=== PATIENT | female | born 1985 | race American Indian/Alaskan Native ===

== ENCOUNTER 2016-08-29 13:02 | Emergency (ER) | payer MEDICAID ==
[2016-08-29 13:05] VITALS: BMI 27.4
[2016-08-29 13:06] VITALS: O2SAT 99
--- NOTE | 2016-08-29 13:51 | C.PDOC ---
History Of Present Illness 31 year old female presents to the ED with complaints of lower back pain, claiming it "feels like a UTI." Patient is whom is currently in 5 weeks of gestation. Patient denies nausea, vomiting, and diarrhea. Time Seen by Provider: 08/29/16 13:10 Chief Complaint (Nursing): Back Pain History Per: Patient History/Exam Limitations: no limitations Onset/Duration Of Symptoms: Hrs Current Symptoms Are (Timing): Still Present Quality Of Discomfort: "Pain" (lower back pain ) Previous Symptoms: Back Pain Past Medical History Reviewed: Historical Data, Nursing Documentation, Vital Signs Vital Signs: Last Vital Signs Temp 98.4 F 08/29/16 13:05 Pulse 62 08/29/16 13:05 Resp 18 08/29/16 13:05 BP 117/73 08/29/16 13:05 Pulse Ox 99 08/29/16 13:53 - Medical History PMH: Asthma - [facility] Procedures DELIVERY OF PRODUCTS OF CONCEPTION, EXTERNAL APPROACH (03/29/15) Family History: States: Unknown Family Hx - Social History Hx Tobacco Use: No Hx Alcohol Use: No Hx Substance Use: No - Immunization History Hx Tetanus Toxoid Vaccination: No Hx Influenza Vaccination: No Hx Pneumococcal Vaccination: No Review Of Systems Constitutional: Negative for: Fever, Chills Gastrointestinal: Negative for: Nausea, Vomiting, Diarrhea Musculoskeletal: Positive for: Back Pain (lower back pain ) Physical Exam - Physical Exam Appears: Non-toxic Skin: Warm, Dry Respiratory: No Rales, No Rhonchi, No Stridor Gastrointestinal/Abdominal: No Guarding, No Rebound Back: Normal Inspection Extremity: Normal ROM, No Tenderness Neurological/Psych: Oriented x3 ED Course And Treatment - Laboratory Results Result Diagrams: 08/29/16 13:54 08/29/16 13:54 O2 Sat by Pulse Oximetry: 99 Medical Decision Making Medical Decision Making: pt with mild lower back pain that "feels like uti". no flank pain, costrovertebral ttp. blood work neg, no leukocytosis. us shows gestational sack. suspect eearly preg vs miscarriage. advise outpt f/u and return precautions Disposition - Disposition Referrals: Pato Jo MD [Staff Provider] - Disposition: HOME/ ROUTINE Disposition Time: 14:29 Condition: STABLE Additional Instructions: please see you obgyn. return toe r with worsening symptoms or concerns. please follow up with your obgyn in 48 hours Prescriptions: Cefpodoxime [Vantin] 100 mg PO BID #14 tab Instructions: Threatened Miscarriage (ED), Urinary Tract Infection in (ED) - Clinical Impression Clinical Impression: Threatened - Scribe Statement The provider has reviewed the documentation as recorded by the Scribe Deidra Price All medical record entries made by the Jyotiibshe were at my direction and personally dictated by me. I have reviewed the chart and agree that the record accurately reflects my personal performance of the history, physical exam, medical decision making, and the department course for this patient. I have also personally directed, reviewed, and agree with the discharge instructions and disposition.
[2016-08-29 13:59] LABS: BASO % 0.6 % (0.0-2.0); EOS # 0.1 K/uL (0.0-0.7); EOS % 0.7 % (0.0-4.0); HEMATOCRIT 36.7 % (34.0-47.0); LYMPH # 2.2 K/uL (1.0-4.3); LYMPH % 26.1 % (20.0-40.0); MEAN CELL VOLUME 84.5 fL (81.0-99.0); MEAN CORPUSCULAR HEMOGLOBIN 27.3 pg (27.0-31.0); MEAN CORPUSCULAR HGB CONC 32.3 g/dL (33.0-37.0); MEAN PLATELET VOLUME 6.7 fL (7.2-11.7); MONO # 0.4 K/uL (0.0-0.8); MONO % 5.2 % (0.0-10.0); RED CELL DISTRIBUTION WIDTH 14.2 % (11.5-14.5); WHITE BLOOD COUNT 8.3 K/uL (4.8-10.8)
[2016-08-29 14:07] LABS: CHLORIDE 98 mmol/L (98-107); POTASSIUM 3.6 mmol/L (3.6-5.2); SODIUM 135 mmol/L (132-148)
[2016-08-29 14:09] LABS: ALB/GLOB RATIO 1.2 (1.0-2.1); ALKALINE PHOSPHATASE 56 U/L (38-126); ALT/SGPT 17 U/L (9-52); AST/SGOT 15 U/L (14-36); BILIRUBIN,TOTAL 0.4 mg/dL (0.2-1.3); BLOOD UREA NITROGEN 11 mg/dL (7-17); CARBON DIOXIDE 24 mmol/L (22-30); GFR AFRICAN-AMERICAN > 60; TOTAL PROTEIN 7.3 g/dL (6.3-8.3)
[2016-08-29 14:10] LABS: CALCIUM 8.8 mg/dl (8.6-10.4); GLUCOSE,RANDOM 105 mg/dL (65-105)
[2016-08-29 14:17] LABS: RBC URINE 13 /hpf (0-3); URINE BACTERIA FEW (<OCC); URINE BILIRUBIN NEGATIVE (NEGATIVE); URINE BLOOD 1+ (NEGATIVE); URINE COLOR Yellow (YELLOW); URINE GLUCOSE (UA) NORMAL (Normal); URINE KETONE NEGATIVE (NEGATIVE); URINE LEUKOCYTE ESTERASE 3+ Leu/uL (Negative); URINE PROTEIN NEGATIVE (NEGATIVE); URINE UROBILINOGEN NORMAL mg/dL (0.2-1.0); WBC URINE 25 /hpf (0-5)
--- NOTE | 2016-08-29 14:22 | US ---
PROCEDURE: OB Pelvic Ultrasound HISTORY: abd pain COMPARISON: None available. FINDINGS: UTERUS: Mildly deformed gestational sac identified corresponding to 5 weeks 5 days gestational age. Yolk sac visualized. No pole or cardiac activity identified.. Riana-gestational hemorrhage: None. Uterus measures 10.0 x 5.0 x 6.6 cm. No mass CERVIX: Long and closed. No cervical abnormality seen. RIGHT OVARY: Measures 3.1 x 1.9 x 3.0 cm. No mass. Normal flow. LEFT OVARY: Measures 3.0 x 1.8 x 2.8 cm. No mass. Normal flow. FREE FLUID: Small OTHER FINDINGS: None. IMPRESSION: Intrauterine gestational sac with yolk sac and no identifiable pole or cardiac activity. Gestational sac mildly deformed. Corresponds to 5 weeks 5 days by mean sac diameter. No subchorionic hemorrhage. Follow-up serial beta HCG and transvaginal pelvic ultrasound examination advised.
[2016-08-29 14:58] VITALS: BP 123/69; PULSE 68; RESP 16; TEMP 97.5
== END 2016-08-29 14:59 | disposition home or self-care (01) ==
LOC: C.ER 13:02
DX: O20.0 Threatened abortion (principal); O23.41 Unspecified infection of urinary tract in pregnancy, first trimester; B96.20 Unspecified Escherichia coli [E. coli] as the cause of diseases classified elsewhere; Z3A.01 Less than 8 weeks gestation of pregnancy

== ENCOUNTER 2017-02-25 17:38 | Emergency (ER) | payer MEDICAID ==
[2017-02-25 17:38] VITALS: BMI 27.4
[2017-02-25] MEDS ORDERED: Alum-Mag Hydrox-Simethicone Susp (30 mL) PO STA (19:01)
[2017-02-25] MEDS ORDERED: Naproxen 550 mg Tab PO STA (19:01)
[2017-02-25 19:30] LABS: RBC URINE 21 /hpf (0-3); TRANSITIONAL EPITHIAL < 1 /hpf (0-3); URINE BACTERIA OCC (<OCC); URINE BILIRUBIN NEGATIVE (NEGATIVE); URINE COLOR Yellow (YELLOW); URINE GLUCOSE (UA) NORMAL (Normal); URINE KETONE NEGATIVE (NEGATIVE); URINE PROTEIN NEGATIVE (NEGATIVE); URINE UROBILINOGEN NORMAL mg/dL (0.2-1.0); WBC URINE 9 /hpf (0-5)
[2017-02-25] MEDS ORDERED: Naproxen 550 mg Tab PO ONE (19:32)
[2017-02-25] MEDS ORDERED: Aluminum Hydroxide/Magnesium Hydroxide Susp (30 mL) ONE (19:33)
[2017-02-25 19:34] LABS: URINE BLOOD 3+ (NEGATIVE); URINE LEUKOCYTE ESTERASE 1+ Leu/uL (Negative)
--- NOTE | 2017-02-25 19:45 | C.PDOC ---
Time Seen by Provider: 02/25/17 18:20 Chief Complaint (Nursing): Chest Pain History Per: Patient Onset/Duration Of Symptoms: Days (3), Intermittent Episodes Current Symptoms Are (Timing): Still Present Severity: Moderate Quality: "Pain" Modifying Factors: Other Indicated Below Exacerbating Factors: Turning, Movement, Other (Eating?) Recent travel outside of the [place]: No Additional History Per: Prior Records Past Medical History Reviewed: Historical Data, Nursing Documentation, Vital Signs Vital Signs: Last Vital Signs Temp 98.8 F 02/25/17 17:39 Pulse 56 L 02/25/17 18:07 Resp 16 02/25/17 18:36 BP 122/63 02/25/17 18:07 Pulse Ox 100 02/25/17 19:46 - Medical History PMH: Asthma Other Surgeries: D&C 3 weeks ago - [facility] Procedures DELIVERY OF PRODUCTS OF CONCEPTION, EXTERNAL APPROACH (03/29/15) Family History: States: Unknown Family Hx - Social History Hx Tobacco Use: No Hx Alcohol Use: No Hx Substance Use: No - Immunization History Hx Tetanus Toxoid Vaccination: No Hx Influenza Vaccination: No Hx Pneumococcal Vaccination: No Review Of Systems Except As Marked, All Systems Reviewed And Found Negative. Constitutional: Negative for: Fever, Weakness Cardiovascular: Positive for: Chest Pain Respiratory: Negative for: Shortness of Breath, Hemoptysis Gastrointestinal: Negative for: Vomiting, Abdominal Pain Genitourinary: Negative for: Dysuria Musculoskeletal: Positive for: Back Pain. Negative for: Neck Pain, Leg Pain Skin: Negative for: Rash Neurological: Negative for: Weakness, Numbness, Seizures Physical Exam - Physical Exam Appears: Non-toxic, No Acute Distress Skin: Normal Color, Warm, Dry, No Rash Head: Atraumatic, Normacephalic Eye(s): bilateral: Normal Inspection, PERRL, EOMI Neck: Normal ROM, Supple Chest: Symmetrical, No Deformity, Tenderness (right costosternal border), No Ecchymosis, No Subcutaneous Emphysema Cardiovascular: Rhythm Regular Respiratory: Normal Breath Sounds, No Accessory Muscle Use Gastrointestinal/Abdominal: Soft, No Tenderness Back: No CVA Tenderness Extremity: Normal ROM, No Pedal Edema, No Calf Tenderness Neurological/Psych: Oriented x3, Normal Motor, Normal Sensation ED Course And Treatment - Laboratory Results Urine POC: Positive ECG: Interpreted By Me, Viewed By Me ECG Rhythm: Sinus Rhythm, Nonspecific Changes ECG Interpretation: No Acute Changes Rate From EC O2 Sat by Pulse Oximetry: 100 Pulse Ox Interpretation: Normal - Radiology CXR: Interpreted by Me, Viewed By Me CXR Interpretation: Yes: No Acute Disease, Heart Size (wnl), Mediastinum (wnl) Reassessment Condition: Improved - Physician Consult Information Physician Contacted: Jacob Wyatt (Pharmacy Sales Assistant) Outcome Of Conversation: She states that UCG can remain positive for several weeks after a TOP. She recommends pt to f/up with her Regulation Supervisor for repeat test in 2 weeks. Progress - Interventions Interventions:: Observation - Medications Administered Oral: Antacid, H-2 onel, NSAID - Data Reviewed Data Reviewed: Lab, Diagnostic imaging, EKG, Old records - Patient Status Patient status: Partially improved - Continuity of Care Discussed patient case with:: Patient, ED Nurse - Patient Plan Patient Plan: Discharge, F/U with PCP Disposition Counseled Patient/Family Regarding: Studies Performed, Diagnosis, Need For Followup, Rx Given - Disposition Referrals: Yovani Fox MD [Staff Provider] - Disposition: HOME/ ROUTINE Disposition Time: 19:54 Condition: IMPROVED Additional Instructions: Follow up with your doctor within 2 days for further evaluation and treatment. Follow up with your Regulation Supervisor doctor within 1-2 weeks for repeat test. Return to the ER if you develop shortness of breath, dizziness, worsening of symptoms or if you have any other concerns. Prescriptions: Famotidine [Pepcid] 20 mg PO BID #30 tab Naproxen [Naprosyn] 1 tab PO BID PRN #20 tab PRN Reason: Pain Instructions: Noncardiac Chest Pain (ED) Forms: [facility] (Sinhala) - Clinical Impression Clinical Impression: Non-cardiac chest pain
[2017-02-25 20:33] VITALS: BP 118/72; PULSE 88; RESP 18; TEMP 98.3; O2SAT 97
--- NOTE | 2017-02-26 07:46 | RAD ---
HISTORY: Chest pain COMPARISON: No prior. TECHNIQUE: Chest PA and lateral FINDINGS: LUNGS: Linear lucency along the lateral aspect of the right lovely thorax may represent Mach artifact from skin fold. Repeat study may be helpful to exclude subtle pneumothorax if clinically indicated. Mild venous congestion. Bibasilar breast and nipple shadows. PLEURA: As above. CARDIOVASCULAR: Normal. OSSEOUS STRUCTURES: No significant abnormalities. VISUALIZED UPPER ABDOMEN: Normal. OTHER FINDINGS: None. IMPRESSION: Linear lucency along the lateral aspect of the right lovely thorax may represent Mach artifact from skin fold. Repeat study may be helpful to exclude subtle pneumothorax if clinically indicated. Mild venous congestion. Bibasilar breast and nipple shadows.
--- NOTE | 2017-02-27 01:43 | CARD ---
APPROVED REPORT EKG Measurement Heart [id number] <Conclusion> Sinus bradycardia Incomplete right bundle branch block Borderline ECG
== END 2017-02-25 20:26 | disposition home or self-care (01) ==
LOC: C.ER 17:38
DX: R07.89 Other chest pain (principal)